=== PATIENT | male | born 1990 | race American Indian/Alaskan Native ===

== ENCOUNTER 2017-03-09 08:11 | Emergency (ER) | payer BC, MEDICAID ==
[2017-03-09 08:21] VITALS: BP 158/81; PULSE 64; TEMP 98; O2SAT 99
--- NOTE | 2017-03-09 08:43 | C.PDOC ---
History Of Present Illness 27 year old patient presents to the ED complaining of intermittent bilateral left quadrant and groin pain for the past 2-3 months. Patient notes the pain is intermittent and last for a few hours. Occasionally, he has epigastric pain. Patient is currently asymptomatic, and denies any fever, nausea, vomiting, weight loss, mass, or UTI symptoms. He states he is having normal bowel movements. INTERMIT B/L LQ/GROIN PAIN X 2-3 MONTHS. INTERMIT, LASTING HOURS. OCC EPIG PAIN. CURRENTLY ASYMPT. NO FEVER, NV, WT LOSS, MASS, UTI SX. PS HAVING NORMAL BM EXAM NEG MDM ADVISED NEED FOR PMD FU, POSSIBLE GI EVAL FOR SAME. OFFERED UA BUT PS "I CAN'T PEE RIGHT NOW" PREFERS TO HAVE OUTPT TESTING. Time Seen by Provider: 03/09/17 08:28 Chief Complaint (Nursing): Abdominal Pain History Per: Patient History/Exam Limitations: no limitations Onset/Duration Of Symptoms: Intermittent Episodes (2-3 months) Current Symptoms Are (Timing): Gone Context: Other Severity: None Pain Scale Rating Of: 0 Location Of Pain/Discomfort: Other (bilateral LQ and groin) Radiation Of Pain To:: None Quality Of Discomfort: "Pain" Exacerbating Factors: None Alleviating Factors: None Last Bowel Movement: Today Recent travel outside of the [place]: No Past Medical History Reviewed: Historical Data, Nursing Documentation, Vital Signs Vital Signs: Last Vital Signs Temp 98.0 F 03/09/17 08:20 Pulse 64 03/09/17 08:20 Resp 18 03/09/17 08:49 BP 158/81 H 03/09/17 08:20 Pulse Ox 99 03/09/17 08:42 Family History: States: Unknown Family Hx - Social History Hx Alcohol Use: No Hx Substance Use: No - Immunization History Hx Tetanus Toxoid Vaccination: No Hx Influenza Vaccination: No Hx Pneumococcal Vaccination: No Review Of Systems Except As Marked, All Systems Reviewed And Found Negative. Constitutional: Negative for: Fever Gastrointestinal: Positive for: Abdominal Pain (bilateral LQ and occasionally epigastric). Negative for: Nausea, Vomiting Genitourinary: Negative for: Dysuria Musculoskeletal: Positive for: Other (bilateral groin pain) Physical Exam - Physical Exam Appears: Non-toxic, No Acute Distress Skin: Warm, Dry Head: Atraumatic, Normacephalic Neck: Normal ROM, Supple Chest: Symmetrical Cardiovascular: Rhythm Regular Respiratory: Normal Breath Sounds, No Rales, No Rhonchi, No Wheezing Gastrointestinal/Abdominal: Soft, No Tenderness, No Guarding, No Rebound Back: Normal Inspection Extremity: Normal ROM, No Tenderness, No Calf Tenderness, No Deformity, No Swelling Neurological/Psych: Oriented x3, Normal Motor, Normal Sensation Gait: Steady ED Course And Treatment O2 Sat by Pulse Oximetry: 99 (room air) Pulse Ox Interpretation: Normal Medical Decision Making Medical Decision Making: Patient is advised to follow up with PMD and possibly GI for a similar evaluation. Patient was offered a urinalysis, but patient states "I can't pee right now." Patient prefers to have outpatient testing. Disposition Counseled Patient/Family Regarding: Diagnosis, Need For Followup - Disposition Referrals: Sam Mejía MD [Staff Provider] - [facility] [Outside] [facility] [Other] Disposition: HOME/ ROUTINE Disposition Time: 08:41 Condition: GOOD Instructions: Abdominal Pain (ED) Forms: Work Excuse - Clinical Impression Clinical Impression: Chronic abdominal pain - Scribe Statement The provider has reviewed the documentation as recorded by the Scribe Kelsey Almaraz Provider Attestation: All medical record entries made by the Scribe were at my direction and personally dictated by me. I have reviewed the chart and agree that the record accurately reflects my personal performance of the history, physical exam, medical decision making, and the department course for this patient. I have also personally directed, reviewed, and agree with the discharge instructions and disposition.
[2017-03-09 08:50] VITALS: RESP 18
== END 2017-03-09 08:49 | disposition home or self-care (01) ==
LOC: C.ER 08:11
DX: G89.29 Other chronic pain (principal); R10.30 Lower abdominal pain, unspecified